=== PATIENT | male | born 1995 | race Caucasian/White ===

== ENCOUNTER 2022-03-22 13:00 | Emergency (ER) | payer BC, OTHER ==
[2022-03-22] MEDS ORDERED: Sodium Chloride 0.9% 10 ML Syringe FLUSH PRN (13:29)
[2022-03-22] MEDS ORDERED: Ketorolac 30 MG/ML SDV IVPUSH ONE (14:47)
== END 2022-03-22 15:05 | disposition home or self-care (01) ==
LOC: JD.ED 13:00
DX: R07.89 Other chest pain (principal); F17.210 Nicotine dependence, cigarettes, uncomplicated; Z88.5 Allergy status to narcotic agent; Z88.0 Allergy status to penicillin; Z88.2 Allergy status to sulfonamides
CPT/HCPCS: 36415; 71045; 80053; 83735; 83880; 84484; 85025; 85610; 85730; 93005; 96374; 99285; J1885; J3490